=== PATIENT | female | born 2000 | race Two or more races ===

== ENCOUNTER 2023-11-24 14:59 | Inpatient (IN) | payer OTHER ==
[~2023-11-24] VITALS: Ht 165.1 cm; Wt 54.4 kg
--- NOTE | 2023-11-24 15:15 | NUR ---
PTE ALERTA Y ORIENTADA X3 REFIERE VENIR A [place] DE QUE CAMEJO ESTADO PRESNETADO DOLOR EN AMBAS PIERNAS DESDE DAVID. AL MOMENTO REFIERE TENER DIFICULTAD PARA UTILIZAR PIERNA DERECHA.
--- NOTE | 2023-11-24 16:38 | NUR ---
SE LE ORIENTA A PTE SOBRE TRATAMIENTO E INSTRUCCIONES A SEGUIR, MILADYS REFIERE ENTENDER. SE COLECTA MUESTRAS SHABBIR ORDEN MEDICA
[2023-11-24 17:00] LABS: HEMATOCRIT 36.3 % (36.0-45.00); HEMOGLOBIN 11.8 g/dL (12.0-15.00); MEAN CELL VOLUME 73.9 fL (80.00-100.00); MEAN CORPUSCULAR HGB CONC 32.5 g/dl (32.0-36.0); PLATELET COUNT 219 K/uL (150-450); RED CELL DISTRIBUTION WIDTH 17.7 % (11.5-14.5)
[2023-11-24 17:14] LABS: ANION GAP 7 (10.0-20.0); BLOOD UREA NITROGEN 10 mg/dL (7-18); BUN CREA RATIO 15 (7.0-25.0); CALCIUM 9.1 mg/dL (8.5-10.1); CARBON DIOXIDE 28 mEq/L (21-32); CHLORIDE 107 mmol/L (98-107); CREATININE SERUM 0.66 mg/dL (0.55-1.02); GFR 113.05; GLUCOSE FASTING 82 mg/dL (65-100); OSMOLALITY SERUM 274 MOSM/KG (275-295); POTASSIUM 3.87 mEq/L (3.5-5.1); SODIUM 138 mmol/L (136-145)
[2023-11-24 17:16] LABS: HCG QUANTITATIVE < 1 mUI/mL (1-3); PHOSPHOKINASE CREATININE 3303 U/L (26-192)
[2023-11-24] MEDS ORDERED: 0.9 % SODIUM CHLORIDE 1,000 ML IV ONE (18:30)
[2023-11-24 20:07] LABS: URINE APPEARANCE Clear; URINE BILIRRUBIN Negative (NEGATIVE); URINE BLOOD Negative; URINE COLOR Yellow; URINE GLUCOSE Negative (NEGATIVE); URINE LEUKOCYTE Negative; URINE NITRATE Negative; URINE PROTEIN Negative (NEGATIVE); URINE UROBILINOGEN 0.2 E.U./dl
[2023-11-24 20:11] LABS: URINE BACTERIA 1075.9 uL (0.0-1933); URINE EPITHELIAL CELLS 25.1 uL (0.0-38.8); URINE RBC 2.9 uL (0.0-20.8)
[2023-11-24 20:39] LABS: URINE WBC 1.7 uL (0.0-23.2)
[2023-11-24] MEDS ORDERED: 0.9 % SODIUM CHLORIDE 1,000 ML IV SCH (20:45)
[2023-11-24] MEDS ORDERED: ORPHENADRINE CITRATE 30 MG/ML AMPUL IM ONE (21:00)
[2023-11-24] MEDS ORDERED: ONDANSETRON HCL 4 MG in 0.9 % SODIUM CHLORIDE 50 ML IV PRN (21:00)
[2023-11-24] MEDS ORDERED: ACETAMINOPHEN 500 MG GEL..CAP PO PRN (21:00)
[2023-11-24 22:38] LABS: INR 1.14; PARTIAL THROMBOPLASTIN TIME 33.4 SECONDS (22.0-34.0); PROTHROMBIN TIME 11.9 SECONDS (9.0-11.5)
[2023-11-25] MEDS ORDERED: FAMOTIDINE/PF 20 MG in 0.9 % SODIUM CHLORIDE 8 ML IV PUSH SCH (09:00)
[2023-11-26 12:34] LABS: ALBUMIN 3.6 gm/dL (3.4-5.0); BILIRUBIN TOTAL 0.28 mg/dL (0.3-1.2); CALCIUM 8.5 mg/dL (8.5-10.1); CREATININE SERUM 0.46 mg/dL (0.55-1.02); GFR 171.48; GLOBULINA 3.1 G/DL (2.4-3.5); POTASSIUM 4.3 mEq/L (3.5-5.1); TOTAL PROTEIN 6.7 gm/dL (6.4-8.2)
[2023-11-26 12:49] LABS: CKMB 10.5 NG/ML (0.5-3.6)
== END 2023-11-27 10:12 | disposition home or self-care (01) | DRG 558 ==
LOC: ER 15:00 → SEC-K 20:56 → MEDI 20:56
PROVIDERS: General Practice; ADMIT Internal Medicine; ATTEND Internal Medicine
DX: M62.82 Rhabdomyolysis (principal)